=== PATIENT | female | born 1930 | race Caucasian/White ===

== ENCOUNTER 2018-07-18 21:45 | Inpatient (IN) ==
[2018-07-18] MEDS ORDERED: hydrALAZINE 20 MG/1 ML VIAL IV STA (22:29)
[2018-07-18 23:05] LABS: Apearance,Urine CLEAR (Clear); Bilirubin,Urine Negative (Negative); Blood, Urine Negative (Negative); Glucose,Urine (UA) Negative (Negative); Ketones,Urine Negative (Negative); Mucus,Urine Occasional /LPF (Occasional); Nitrite,Urine Negative (Negative); Protein,Urine Negative; RBC,Urine 1 /HPF (0-4); Urine Color Straw (Yellow); Urine Specific Gravity 1.004 (1.001-1.035); Urine Urobilinogen < 2.0 EU/DL (0.2-1.0); WBC,Urine <1 /HPF (0-6)
[2018-07-18 23:30] LABS: Basophils # 0.1 10*3/uL (0.0-0.2); Basophils % 0.8 % (0.0-0.8); Eosinophils # 0.3 10*3/uL (0.0-0.87); Eosinophils % 2.9 % (0.00-10.9); Hematocrit 33.5 VOL% (35.7-47.0); Hemoglobin 10.5 GM/DL (12.0-16.0); Immature Granulocytes % 0.4 %; Immature Granulocytes Absolute 0.04 #; Lymphocytes # 1.5 10*3/uL (1.4-4.0); Lymphocytes % 17.1 % (21.3-54.2); Mean Corpuscular HGB Conc 31.3 GM/DL (32-36); Mean Corpuscular Hemoglobin 30 PG (27-34); Mean Corpuscular Volume 96.3 FL (87-102); Mean Platelet Volume 9.9 FL (9.6-12.0); Monocytes # 0.8 10*3/uL (0.11-0.8); Monocytes % 8.6 % (1.7-12.7); Neutrophils # 6.3 10*3/uL (1.4-7.4); Neutrophils % 70.2 % (38.7-73.9); Platelet Count 297 T/CUMM (130-400); Red Blood Count 3.48 MC/CUMM (3.8-5.5); Red Cell Distribution Width 14.8 % (9.3-17.3)
[2018-07-18 23:44] LABS: INR 0.9; PT Patient Result 9.7 SECS; Partial Thromboplastin Time 27.3 SECS (0-40)
[2018-07-18 23:57] LABS: Ammonia 28 UMOL/L (11-32)
[2018-07-19 00:02] LABS: Troponin I < 0.015 NG/ML (0.00-0.045)
[2018-07-19 00:03] LABS: Alanine Aminotransferase 16 U/L (13-56); Albumin 3.3 G/DL (3.4-5.0); Alkaline Phosphatase 69 U/L (45-117); Aspartate Amino Transferase 13 U/L (0-37); Bilirubin,Total < 0.39 MG/DL (0.2-1.0); Blood Urea Nitrogen 25 MG/DL (7-18); Calcium 8.5 MG/DL (8.5-10.1); Glucose 138 MG/DL (74-106); Osmolality,Calculated 291.8 MOS/KG (273-304); Potassium 3.2 MMOL/L (3.5-5.1); Sodium 144 MMOL/L (136-145); Total Protein 7.3 G/DL (6.4-8.3)
[2018-07-19 00:12] LABS: Barbiturates Screen,Urine Negative (Negative); Benzodiazepines Screen,Urine Negative (Negative); Cannabinoid Screen,Urine Negative (Negative); Opiate Screen,Urine Negative (Negative); Phencyclidine Screen,Urine Negative (Negative)
[2018-07-19] MEDS ORDERED: diphenhydrAMINE CAP 25 MG CAPSULE PO PRN (01:14)
[2018-07-19] MEDS ORDERED: ACETAMINOPHEN 325 MG TABLET PO PRN (01:14)
[2018-07-19 02:17] LABS: Risk Ratio 2.36; VLDL CHOLESTEROL 20.4 MG/DL
[2018-07-19] MEDS: SODIUM CHLORIDE 0.9% 1,000 ML IV SCH ×2 (03:05→18:31)
[2018-07-19] MEDS ORDERED: LEVOTHYROXINE 88 MCG TABLET PO SCH (07:19)
[2018-07-19 07:41] LABS: Basophils # 0.1 10*3/uL (0.0-0.2); Basophils % 0.5 % (0.0-0.8); Eosinophils % 0.3 % (0.00-10.9); Hemoglobin 10.7 GM/DL (12.0-16.0); Immature Granulocytes % 0.7 %; Immature Granulocytes Absolute 0.07 #; Lymphocytes # 1.1 10*3/uL (1.4-4.0); Lymphocytes % 11.4 % (21.3-54.2); Mean Corpuscular HGB Conc 31.5 GM/DL (32-36); Mean Corpuscular Hemoglobin 30 PG (27-34); Mean Corpuscular Volume 94.4 FL (87-102); Mean Platelet Volume 9.9 FL (9.6-12.0); Monocytes # 0.7 10*3/uL (0.11-0.8); Monocytes % 7.2 % (1.7-12.7); Neutrophils # 7.9 10*3/uL (1.4-7.4); Neutrophils % 79.9 % (38.7-73.9); Platelet Count 299 T/CUMM (130-400); Red Cell Distribution Width 15.2 % (9.3-17.3); White Blood Count 9.9 T/CUMM (4-12)
[2018-07-19 08:24] LABS: Albumin 3.3 G/DL (3.4-5.0); Bilirubin,Total 0.5 MG/DL (0.2-1.0); Calcium 9.1 MG/DL (8.5-10.1); Osmolality,Calculated 287.1 MOS/KG (273-304); Total Protein 7.7 G/DL (6.4-8.3)
[2018-07-19] MEDS: hydrALAZINE 20 MG/1 ML VIAL IV PRN ×2 (08:30→17:23)
[2018-07-19] MEDS ORDERED: PANTOPRAZOLE 40 MG TABLET PO SCH (09:00)
[2018-07-19] MEDS ORDERED: FLUDROCORTISONE 0.1 MG TABLET PO SCH (09:00)
[2018-07-19] MEDS: MORPHINE 4 MG/1 ML VIAL IV PRN (10:29)
[2018-07-19] MEDS: ONDANSETRON 4 MG/2 ML VIAL IV PRN ×2 (10:38→18:29)
[2018-07-19] MEDS: LORazepam 0.5 MG TABLET PO SCH ×3 (18:30→22:10)
[2018-07-19] MEDS: ASPIRIN 325 MG TABLET PO SCH (18:30)
[2018-07-19] MEDS: ATENOLOL 50 MG TABLET PO SCH (18:30)
[2018-07-19] MEDS: DONEPEZIL 5 MG TABLET PO SCH (18:30)
[2018-07-19] MEDS: ENOXAPARIN 30 MG/0.3 ML SYRINGE SUBCUT SCH (18:31)
[2018-07-19] MEDS: amLODIPine 5 MG TABLET PO SCH (18:31)
[2018-07-19] MEDS: LEVOTHYROXINE 100 MCG TABLET PO SCH (18:31)
[2018-07-19] MEDS: SODIUM BICARBONATE 650 MG TABLET PO SCH ×3 (18:41→22:10)
[2018-07-19] MEDS: GABAPENTIN 100 MG CAPSULE PO SCH (22:10)
[2018-07-19] MEDS: ATORVASTATIN 40 MG TABLET PO SCH (22:10)
[2018-07-20] MEDS: SODIUM CHLORIDE 0.9% 1,000 ML IV SCH ×2 (01:15→09:16)
[2018-07-20 05:42] LABS: Calcium 8.3 MG/DL (8.5-10.1); Osmolality,Calculated 295.4 MOS/KG (273-304)
[2018-07-20] MEDS: LEVOTHYROXINE 100 MCG TABLET PO SCH (05:59)
[2018-07-20] MEDS: LORazepam 0.5 MG TABLET PO SCH ×3 (05:59→21:16)
[2018-07-20] MEDS: LANSOPRAZOLE ODT 30 MG TABLET PO SCH (08:29)
[2018-07-20] MEDS: SODIUM BICARBONATE 650 MG TABLET PO SCH ×3 (08:30→21:16)
[2018-07-20] MEDS: ATENOLOL 50 MG TABLET PO SCH (08:31)
[2018-07-20] MEDS: amLODIPine 5 MG TABLET PO SCH (08:31)
[2018-07-20] MEDS: ASPIRIN 325 MG TABLET PO SCH (08:32)
[2018-07-20] MEDS: DONEPEZIL 5 MG TABLET PO SCH (08:36)
[2018-07-20] MEDS: ENOXAPARIN 30 MG/0.3 ML SYRINGE SUBCUT SCH (08:41)
[2018-07-20] MEDS: DEXTROSE 5% 1,000 ML IV SCH (11:38)
[2018-07-20] MEDS ORDERED: POTASSIUM CHLORIDE 20 MEQ PACK PO ONE (13:17)
[2018-07-20] MEDS: ATORVASTATIN 40 MG TABLET PO SCH (21:16)
[2018-07-20] MEDS: GABAPENTIN 100 MG CAPSULE PO SCH (21:16)
[2018-07-21] MEDS: DEXTROSE 5% 1,000 ML IV SCH ×2 (00:44→15:38)
[2018-07-21] MEDS: MORPHINE 4 MG/1 ML VIAL IV PRN (03:15)
[2018-07-21 04:58] LABS: Basophils % 0.4 % (0.0-0.8); Eosinophils # 0.2 10*3/uL (0.0-0.87); Eosinophils % 1.8 % (0.00-10.9); Hematocrit 30.4 VOL% (35.7-47.0); Hemoglobin 9.5 GM/DL (12.0-16.0); Immature Granulocytes % 0.6 %; Immature Granulocytes Absolute 0.07 #; Lymphocytes # 1.6 10*3/uL (1.4-4.0); Lymphocytes % 14.4 % (21.3-54.2); Mean Corpuscular HGB Conc 31.3 GM/DL (32-36); Mean Corpuscular Hemoglobin 30 PG (27-34); Mean Corpuscular Volume 96.2 FL (87-102); Mean Platelet Volume 10.4 FL (9.6-12.0); Monocytes # 1.1 10*3/uL (0.11-0.8); Monocytes % 9.3 % (1.7-12.7); Neutrophils # 8.4 10*3/uL (1.4-7.4); Neutrophils % 73.5 % (38.7-73.9); Platelet Count 240 T/CUMM (130-400); Red Blood Count 3.16 MC/CUMM (3.8-5.5); Red Cell Distribution Width 14.9 % (9.3-17.3); White Blood Count 11.4 T/CUMM (4-12)
[2018-07-21 05:12] LABS: Calcium 8.2 MG/DL (8.5-10.1); Osmolality,Calculated 282.4 MOS/KG (273-304); Potassium 3.3 MMOL/L (3.5-5.1)
[2018-07-21] MEDS: LEVOTHYROXINE 100 MCG TABLET PO SCH (05:53)
[2018-07-21] MEDS: LORazepam 0.5 MG TABLET PO SCH ×3 (05:53→21:04)
[2018-07-21] MEDS: SODIUM BICARBONATE 650 MG TABLET PO SCH ×3 (09:49→21:04)
[2018-07-21] MEDS: ASPIRIN 325 MG TABLET PO SCH (09:49)
[2018-07-21] MEDS: LANSOPRAZOLE ODT 30 MG TABLET PO SCH (09:49)
[2018-07-21] MEDS: DONEPEZIL 5 MG TABLET PO SCH (09:49)
[2018-07-21] MEDS: amLODIPine 5 MG TABLET PO SCH (09:50)
[2018-07-21] MEDS: ATENOLOL 50 MG TABLET PO SCH (09:50)
[2018-07-21] MEDS: ENOXAPARIN 30 MG/0.3 ML SYRINGE SUBCUT SCH (09:55)
[2018-07-21] MEDS: ATORVASTATIN 40 MG TABLET PO SCH (21:04)
[2018-07-21] MEDS: GABAPENTIN 100 MG CAPSULE PO SCH (21:04)
[2018-07-22] MEDS: MORPHINE 4 MG/1 ML VIAL IV PRN (02:48)
[2018-07-22 05:15] LABS: Basophils % 0.2 % (0.0-0.8); Eosinophils # 0.3 10*3/uL (0.0-0.87); Eosinophils % 2.3 % (0.00-10.9); Hematocrit 32.5 VOL% (35.7-47.0); Hemoglobin 10.3 GM/DL (12.0-16.0); Immature Granulocytes % 0.5 %; Immature Granulocytes Absolute 0.06 #; Lymphocytes # 1.3 10*3/uL (1.4-4.0); Lymphocytes % 10.5 % (21.3-54.2); Mean Corpuscular HGB Conc 31.7 GM/DL (32-36); Mean Corpuscular Hemoglobin 30 PG (27-34); Mean Platelet Volume 10.8 FL (9.6-12.0); Monocytes # 1.1 10*3/uL (0.11-0.8); Neutrophils # 9.6 10*3/uL (1.4-7.4); Neutrophils % 77.5 % (38.7-73.9); Platelet Count 266 T/CUMM (130-400); Red Blood Count 3.42 MC/CUMM (3.8-5.5); Red Cell Distribution Width 14.5 % (9.3-17.3); White Blood Count 12.4 T/CUMM (4-12)
[2018-07-22 05:36] LABS: Calcium 8.4 MG/DL (8.5-10.1); Osmolality,Calculated 275.8 MOS/KG (273-304); Potassium 2.9 MMOL/L (3.5-5.1)
[2018-07-22] MEDS: LORazepam 0.5 MG TABLET PO SCH ×3 (05:46→21:45)
[2018-07-22] MEDS: LEVOTHYROXINE 100 MCG TABLET PO SCH (05:46)
[2018-07-22] MEDS: ASPIRIN 325 MG TABLET PO SCH (09:46)
[2018-07-22] MEDS: ATENOLOL 50 MG TABLET PO SCH (09:47)
[2018-07-22] MEDS: amLODIPine 10 MG TABLET PO SCH (09:47)
[2018-07-22] MEDS: LANSOPRAZOLE ODT 30 MG TABLET PO SCH (09:47)
[2018-07-22] MEDS: ENOXAPARIN 30 MG/0.3 ML SYRINGE SUBCUT SCH (09:47)
[2018-07-22] MEDS: SODIUM BICARBONATE 650 MG TABLET PO SCH ×3 (09:47→21:45)
[2018-07-22] MEDS: DONEPEZIL 5 MG TABLET PO SCH (09:47)
[2018-07-22] MEDS: LISINOPRIL 5 MG TABLET PO SCH (17:07)
[2018-07-22] MEDS: POTASSIUM CHLORIDE 20 MEQ TABLET PO SCH (17:07)
[2018-07-22] MEDS: DEXTROSE 5% 1,000 ML IV SCH ×2 (17:10→18:25)
[2018-07-22] MEDS: GABAPENTIN 100 MG CAPSULE PO SCH (21:45)
[2018-07-22] MEDS: ATORVASTATIN 40 MG TABLET PO SCH (21:45)
[2018-07-23] MEDS: LORazepam 0.5 MG TABLET PO SCH ×3 (06:09→21:20)
[2018-07-23] MEDS: LEVOTHYROXINE 100 MCG TABLET PO SCH (06:09)
[2018-07-23] MEDS: LANSOPRAZOLE ODT 30 MG TABLET PO SCH (08:13)
[2018-07-23] MEDS: LISINOPRIL 5 MG TABLET PO SCH (08:13)
[2018-07-23] MEDS: POTASSIUM CHLORIDE 20 MEQ TABLET PO SCH (08:13)
[2018-07-23] MEDS: ASPIRIN 325 MG TABLET PO SCH (08:13)
[2018-07-23] MEDS: ENOXAPARIN 30 MG/0.3 ML SYRINGE SUBCUT SCH (08:14)
[2018-07-23] MEDS: ATENOLOL 50 MG TABLET PO SCH (08:14)
[2018-07-23] MEDS: SODIUM BICARBONATE 650 MG TABLET PO SCH ×3 (08:14→21:20)
[2018-07-23] MEDS: DONEPEZIL 5 MG TABLET PO SCH (08:14)
[2018-07-23] MEDS: amLODIPine 10 MG TABLET PO SCH (08:14)
[2018-07-23] MEDS: DEXTROSE 5% 1,000 ML IV SCH ×2 (21:12→21:16)
[2018-07-23] MEDS: APIXABAN 2.5 MG TABLET PO SCH (21:15)
[2018-07-23] MEDS: GABAPENTIN 100 MG CAPSULE PO SCH (21:20)
[2018-07-23] MEDS: ATORVASTATIN 40 MG TABLET PO SCH (21:20)
[2018-07-24 05:18] LABS: Basophils % 0.4 % (0.0-0.8); Eosinophils # 0.2 10*3/uL (0.0-0.87); Eosinophils % 2.4 % (0.00-10.9); Immature Granulocytes % 0.9 %; Immature Granulocytes Absolute 0.09 #; Lymphocytes # 1.7 10*3/uL (1.4-4.0); Lymphocytes % 16.8 % (21.3-54.2); Mean Corpuscular HGB Conc 32.1 GM/DL (32-36); Mean Corpuscular Hemoglobin 30 PG (27-34); Mean Corpuscular Volume 94.3 FL (87-102); Monocytes # 1.4 10*3/uL (0.11-0.8); Monocytes % 14.4 % (1.7-12.7); Neutrophils # 6.4 10*3/uL (1.4-7.4); Neutrophils % 65.1 % (38.7-73.9); Platelet Count 240 T/CUMM (130-400); Red Blood Count 2.97 MC/CUMM (3.8-5.5); Red Cell Distribution Width 14.6 % (9.3-17.3); White Blood Count 9.8 T/CUMM (4-12)
[2018-07-24] MEDS: LORazepam 0.5 MG TABLET PO SCH (05:33)
[2018-07-24] MEDS: LEVOTHYROXINE 100 MCG TABLET PO SCH (05:33)
[2018-07-24 05:36] LABS: Calcium 8.4 MG/DL (8.5-10.1); Osmolality,Calculated 275.8 MOS/KG (273-304); Potassium 3.1 MMOL/L (3.5-5.1)
[2018-07-24 07:58] VITALS: BP 135/95
[2018-07-24] MEDS ORDERED: POTASSIUM CHLORIDE 20 MEQ TABLET PO SCH (08:09)
[2018-07-24] MEDS: LANSOPRAZOLE ODT 30 MG TABLET PO SCH (08:18)
[2018-07-24] MEDS: ASPIRIN 325 MG TABLET PO SCH (08:18)
[2018-07-24] MEDS: SODIUM BICARBONATE 650 MG TABLET PO SCH (08:18)
[2018-07-24] MEDS: LISINOPRIL 5 MG TABLET PO SCH (08:18)
[2018-07-24] MEDS: amLODIPine 10 MG TABLET PO SCH (08:18)
[2018-07-24] MEDS: ATENOLOL 50 MG TABLET PO SCH (08:19)
[2018-07-24] MEDS: POTASSIUM CHLORIDE 20 MEQ TABLET PO SCH (08:19)
[2018-07-24] MEDS: DONEPEZIL 5 MG TABLET PO SCH (08:19)
[2018-07-24] MEDS: APIXABAN 2.5 MG TABLET PO SCH (08:19)
[2018-07-24] MEDS: DEXTROSE 5% 1,000 ML IV SCH (08:22)
== END 2018-07-24 10:20 | DRG 65 ==
LOC: EDBD → EDUNIT# → N.ED 21:45 → N.EDINP 07-19 01:14 → SUATTDRO 07-19 01:14 → N.4E 07-19 01:43
PROVIDERS: ADMIT Internal Medicine; ATTEND Hospitalist